=== PATIENT | female | born 2000 | race Caucasian/White ===

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

== ENCOUNTER 2020-03-09 20:07 | Emergency (ER) | payer MEDICAID ==
--- NOTE | 2020-03-09 20:50 | EDM.PDOC ---
ED HPI GENERAL MEDICAL PROBLEM - General Chief Complaint: Abdominal Pain Stated Complaint: LOWER RIGHT SIDE PAIN Time Seen by Provider: 03/09/20 20:49 Source of Information: Reports: Patient History Limitations: Reports: No Limitations - History of Present Illness INITIAL COMMENTS - FREE TEXT/NARRATIVE: onset today right flank area, did have dysuria last week, Right Abdominal Pain Score (Numeric/FACES): 7 - Related Data Allergies Allergy/AdvReac Type Severity Reaction Status Date / Time nitrofurantoin Allergy Rash Verified 12/21/19 23:45 Home Meds: Home Meds Ibuprofen 400 mg PO Q6H PRN 05/11/18 [History] Past Medical History - Past Health History Medical/Surgical History: Denies Medical/Surgical History HEENT History: Reports: None Cardiovascular History: Reports: None Respiratory History: Reports: None Gastrointestinal History: Reports: None Genitourinary History: Reports: None MAINTENANCE PERSON History: Reports: None Musculoskeletal History: Reports: None Neurological History: Reports: None Psychiatric History: Reports: None Endocrine/Metabolic History: Reports: None Hematologic History: Reports: None Immunologic History: Reports: None Oncologic (Cancer) History: Reports: None Dermatologic History: Reports: None - Infectious Disease History Infectious Disease History: Reports: None - Past Surgical History Head Surgeries/Procedures: Reports: None Social & Family History - Family History Family Medical History: Noncontributory - Caffeine Use Caffeine Use: Reports: None ED ROS GENERAL - Review of Systems Review Of Systems: Comprehensive ROS is negative, except as noted in HPI. ED EXAM, RENAL/ - Physical Exam Exam: See Below Exam Limited By: No Limitations General Appearance: Alert, WD/WN, Mild Distress, Other (discomfort). No: Active Emesis Ears: Hearing Grossly Normal Throat/Mouth: Normal Voice, No Airway Compromise Head: Atraumatic Neck: Non-Tender, Full Range of Motion Respiratory/Chest: No Respiratory Distress Cardiovascular: Regular Rate, Rhythm GI/Abdominal: Guarding, Tender, Other (RUQ). No: Distended, Rigid, Rebound Back Exam: CVA Tenderness (R) Neurological: Alert, Oriented, Normal Cognition, Normal Gait, No Motor/Sensory Deficits Psychiatric: Normal Affect, Normal Mood Skin Exam: Warm, Dry, Normal Color Lymphatic: No Adenopathy Course - Vital Signs Last Recorded V/S: Last Vital Signs Temp 37.4 C 03/09/20 20:47 Pulse 89 03/09/20 20:47 Resp 16 03/09/20 20:47 BP 113/69 03/09/20 20:47 Pulse Ox 100 03/09/20 20:47 - Orders/Labs/Meds Orders: Active Orders 24 hr Category Date Time Status CULTURE URINE [RM] Stat Lab 03/09/20 20:44 Received Labs: Laboratory Tests 03/09/20 03/09/20 03/09/20 Range/Units 20:44 20:44 21:00 WBC 8.9 (5.0-10.0) 10^3/uL RBC 3.94 L (4.2-5.4) 10^6/uL Hgb 12.1 (12.0-16.0) g/dL Hct 35.7 L (37.0-47.0) % MCV 90.6 (80-100) fL MCH 30.7 (27.0-34.0) pg MCHC 33.9 (33.0-35.0) g/dL Plt Count 216 D (150-450) 10^3/uL Neut % (Auto) 46.3 (42.2-75.2) % Lymph % (Auto) 42.3 (20.5-50.1) % [place] % (Auto) 8.7 H (2-8) % Eos % (Auto) 2.5 (1.0-3.0) % Baso % (Auto) 0.2 (0.0-1.0) % Sodium (136-145) mmol/L Potassium (3.5-5.1) mmol/L Chloride (98-107) mmol/L Carbon Dioxide (21-32) mmol/L Anion Gap (7-13) mEq/L BUN (7-18) mg/dL Creatinine (0.55-1.02) mg/dL Est Cr Clr Drug Dosing mL/min Estimated GFR (MDRD) BUN/Creatinine Ratio (No establ ref range) Glucose (74-99) mg/dL Calcium (8.5-10.1) mg/dL Total Bilirubin (0.2-1.0) mg/dL AST (15-37) U/L ALT (14-59) U/L Alkaline Phosphatase (46-116) U/L Total Protein (6.4-8.2) g/dL Albumin (3.4-5.0) g/dL Globulin Albumin/Globulin Ratio Amylase (25-115) U/L Lipase (73-393) U/L Urine Color Light yellow (YELLOW) Urine Appearance Slightly cloudy (CLEAR) Urine pH 6.5 (5.0-9.0) Ur Specific [place] 1.010 (1.005-1.030) Urine Protein Negative (NEGATIVE) Urine Glucose (UA) Negative (NEGATIVE) Urine Ketones Negative (NEGATIVE) Urine Occult Blood Trace-intact H (NEGATIVE) Urine Nitrite Negative (NEGATIVE) Urine Bilirubin Negative (NEGATIVE) Urine Urobilinogen 0.2 (0.2-1.0) mg/dL Ur Leukocyte Esterase Moderate H (NEGATIVE) Urine RBC 0-5 /HPF Urine WBC 30-40 H (0-5/HPF) /HPF Ur Epithelial Cells Moderate H (NOT SEEN) /HPF Amorphous Sediment Few (NOT SEEN) /HPF Urine Bacteria Few (0-FEW/HPF) /HPF Urine Mucus Rare (NOT SEEN) /LPF Urine HCG, Qual Negative 03/09/20 Range/Units 21:00 WBC (5.0-10.0) 10^3/uL RBC (4.2-5.4) 10^6/uL Hgb (12.0-16.0) g/dL Hct (37.0-47.0) % MCV (80-100) fL MCH (27.0-34.0) pg MCHC (33.0-35.0) g/dL Plt Count (150-450) 10^3/uL Neut % (Auto) (42.2-75.2) % Lymph % (Auto) (20.5-50.1) % [place] % (Auto) (2-8) % Eos % (Auto) (1.0-3.0) % Baso % (Auto) (0.0-1.0) % Sodium 141 (136-145) mmol/L Potassium 3.1 L (3.5-5.1) mmol/L Chloride 105 (98-107) mmol/L Carbon Dioxide 28 (21-32) mmol/L Anion Gap 11.1 (7-13) mEq/L BUN 10 (7-18) mg/dL Creatinine 0.93 (0.55-1.02) mg/dL Est Cr Clr Drug Dosing 90.33 mL/min Estimated GFR (MDRD) > 60 BUN/Creatinine Ratio 10.8 (No establ ref range) Glucose 107 H (74-99) mg/dL Calcium 8.5 (8.5-10.1) mg/dL Total Bilirubin 0.3 (0.2-1.0) mg/dL AST 12 L (15-37) U/L ALT 17 (14-59) U/L Alkaline Phosphatase 50 (46-116) U/L Total Protein 7.1 (6.4-8.2) g/dL Albumin 3.7 (3.4-5.0) g/dL Globulin 3.4 Albumin/Globulin Ratio 1.1 Amylase 44 (25-115) U/L Lipase 114 (73-393) U/L Urine Color (YELLOW) Urine Appearance (CLEAR) Urine pH (5.0-9.0) Ur Specific [place] (1.005-1.030) Urine Protein (NEGATIVE) Urine Glucose (UA) (NEGATIVE) Urine Ketones (NEGATIVE) Urine Occult Blood (NEGATIVE) Urine Nitrite (NEGATIVE) Urine Bilirubin (NEGATIVE) Urine Urobilinogen (0.2-1.0) mg/dL Ur Leukocyte Esterase (NEGATIVE) Urine RBC /HPF Urine WBC (0-5/HPF) /HPF Ur Epithelial Cells (NOT SEEN) /HPF Amorphous Sediment (NOT SEEN) /HPF Urine Bacteria (0-FEW/HPF) /HPF Urine Mucus (NOT SEEN) /LPF Urine HCG, Qual Meds: Medications Discontinued Medications Generic Name Dose Route Start Last Admin Trade Name Freq PRN Reason Stop Dose Admin Ciprofloxacin 500 mg 03/09/20 21:57 Ciprofloxacin Hcl PO 03/09/20 21:58 ONETIME ONE Phenazopyridine HCl 95 mg 03/09/20 21:57 Urinary Pain Relief PO 03/09/20 21:58 ONETIME ONE - Re-Assessments/Exams Free Text/Narrative Re-Assessment/Exam: 03/09/20 22:00 results discussed with pt Departure - Departure Time of Disposition: 22:00 Disposition: Home, Self-Care 01 Condition: Good Clinical Impression: UTI (urinary tract infection) Qualifiers: Urinary tract infection type: acute cystitis Hematuria presence: with hematuria Qualified Code(s): N30.01 - Acute cystitis with hematuria - Discharge Information Instructions: Urinary Tract Infection, Adult, [id number] Forms: ED Department Discharge Additional Instructions: 1) drink lots of liquids 2) follow up at clinic rx given; cipro 250mg bid x 5 days pyridium 100mg tid prn x 12 Sepsis Event Note (ED) - Evaluation Sepsis Screening Result: No Definite Risk - Focused Exam Vital Signs: Vital Signs Temp Pulse Resp BP Pulse Ox 03/09/20 20:47 37.4 C 89 16 113/69 100 - My Orders Last 24 Hours: My Active Orders 03/09/20 20:44 CULTURE URINE [RM] Stat - Assessment/Plan Last 24 Hours: My Active Orders 03/09/20 20:44 CULTURE URINE [RM] Stat
[2020-03-09 21:30] LABS: ANION GAP 11.1 mEq/L (7-13); CHLORIDE,CL 105 mmol/L (98-107); SODIUM,NA 141 mmol/L (136-145)
[2020-03-09] MEDS ORDERED: Ciprofloxacin 500 MG Tab PO ONE (21:57)
[2020-03-09] MEDS ORDERED: Phenazopyridine 95 MG Tab PO ONE (21:57)
== END 2020-03-09 22:07 | disposition home or self-care (01) ==
LOC: DL.ED 20:07
DX: N30.01 Acute cystitis with hematuria (principal); Z88.1 Allergy status to other antibiotic agents
CPT/HCPCS: 36415; 80053; 81001; 81025; 82150; 83690; 85025; 87086; 99283; A9270

== ENCOUNTER 2021-03-03 16:36 | Emergency (ER) | payer MEDICAID ==
--- NOTE | 2021-03-03 18:24 | EDM.PDOC ---
<Rachel Fermin - Last Filed: 03/03/21 19:20> ED HPI GENERAL MEDICAL PROBLEM - General Chief Complaint: ENT Problem Stated Complaint: THINKS HAS STREP Time Seen by Provider: 03/03/21 18:22 - Related Data Allergies Allergy/AdvReac Type Severity Reaction Status Date / Time nitrofurantoin Allergy Rash Verified 03/03/21 17:11 Departure - Departure Disposition: Home, Self-Care 01 Condition: Good Clinical Impression: Pharyngitis - Discharge Information *PRESCRIPTION DRUG MONITORING PROGRAM REVIEWED*: No *COPY OF PRESCRIPTION DRUG MONITORING REPORT IN PATIENT ZEYNEP: No Instructions: Sore Throat, [id number] Forms: ED Department Discharge Additional Instructions: alternate tylenol 650mg and ibuprofen 600mg every 4 hours as needed for discomfort/ fever clinic follow up 3-4 days if not improving or symptoms worsen increase fluids diet as tolerated <Stephanie Hough - Last Filed: 03/04/21 08:44> ED HPI GENERAL MEDICAL PROBLEM - General Source of Information: Reports: Patient, RN, RN Notes Reviewed History Limitations: Reports: No Limitations - History of Present Illness INITIAL COMMENTS - FREE TEXT/NARRATIVE: Nicole is a 21 y/o female who presents to the ED via personal vehicle with complaints of sore throat, neck pain, and headache. The patient states her symptoms started two days ago and have progressively worsened. She reports monthly migraines with her menses and feels her current headache feels similar. She has taken one dose of Tylenol 650mg with no alleviation in symptoms. She denies fever, shaking chills, vision changes, dizziness, cough, chest pain, or shortness of breath. She does attest to nasal congestion. Treatments CLAIM PROCESSOR: Reports: Acetaminophen .frontal h/a Pain Score (Numeric/FACES): 7 Past Medical History - Past Health History Medical/Surgical History: Denies Medical/Surgical History HEENT History: Reports: None Cardiovascular History: Reports: None Respiratory History: Reports: Asthma Gastrointestinal History: Reports: None Genitourinary History: Reports: None OFFLINE CUTTER History: Reports: None Musculoskeletal History: Reports: None Neurological History: Reports: None Psychiatric History: Reports: None Endocrine/Metabolic History: Reports: None Hematologic History: Reports: None Immunologic History: Reports: None Oncologic (Cancer) History: Reports: None Dermatologic History: Reports: None - Infectious Disease History Infectious Disease History: Reports: None - Past Surgical History Head Surgeries/Procedures: Reports: None HEENT Surgical History: Reports: Other (See Below) Other HEENT Surgeries/Procedures: wisdom teeth Social & Family History - Family History Family Medical History: No Pertinent Family History - Tobacco Use Tobacco Use Status *Q: Never Tobacco User Second Hand Smoke Exposure: No - Caffeine Use Caffeine Use: Reports: None - Recreational Drug Use Recreational Drug Use: No ED ROS ENT - Review of Systems Review Of Systems: Comprehensive ROS is negative, except as noted in HPI. ED EXAM, ENT - Physical Exam Exam: See Below Exam Limited By: No Limitations General Appearance: Alert, No Apparent Distress, Thin Eye Exam: Bilateral Eye: EOMI, Normal Inspection, PERRL (3mm) Ears: Normal External Exam, Normal Canal, Hearing Grossly Normal, Normal TMs Nose: Normal Inspection, Normal Mucousa, No Blood Mouth/Throat: Normal Inspection, Normal Gums, Normal Lips, Normal Oropharynx, Normal Teeth Head: Atraumatic, Normocephalic Neck: Supple, Full Range of Motion, Lymphadenopathy (L) (Anterior cervical chain), Lymphadenopathy (R) (Posterior cervical chain), Tender Midline. No: Tender Lateral Respiratory/Chest: No Respiratory Distress, Lungs Clear, Normal Breath Sounds, No Accessory Muscle Use, Chest Non-Tender. No: Crackles, Rales, Rhonchi, Wheezing, Stridor Cardiovascular: Normal Peripheral Pulses, Regular Rate, Rhythm, No Edema, No Gallop, No JVD, No Murmur, No Rub GI/Abdominal: Normal Bowel Sounds, Soft, Non-Tender, No Distention, No Abnormal Bruit, No Mass, Pelvis Stable (Female) Exam: Deferred Rectal (Female) Exam: Deferred Back: Normal Inspection, Full Range of Motion Extremities: Normal Inspection, Normal Range of Motion Neurological: Alert, Oriented, CN II-XII Intact, Normal Cognition, Normal Gait, No Motor/Sensory Deficits Psychiatric: Normal Affect, Normal Mood Skin: Warm, Dry, Intact, Normal Color, No Rash. No: Cyanosis, Jaundice, Mottled, Pallor Lymphatic: No Adenopathy Course - Vital Signs Last Recorded V/S: Last Vital Signs Temp 98.2 F 03/03/21 17:07 Pulse 88 03/03/21 17:07 Resp 16 03/03/21 17:07 BP 117/54 L 03/03/21 17:07 Pulse Ox 98 03/03/21 17:07 - Orders/Labs/Meds Meds: Medications Discontinued Medications Generic Name Dose Route Start Last Admin Trade Name Estella PRN Reason Stop Dose Admin Diphenhydramine HCl 50 mg 03/03/21 19:08 03/03/21 19:20 Diphenhydramine 50 Mg Cap PO 03/03/21 19:09 50 mg ONETIME ONE Administration Ketorolac Tromethamine 30 mg 03/03/21 19:08 03/03/21 19:19 Ketorolac 30 Mg/Ml Sdv IM 03/03/21 19:09 30 mg ONETIME ONE Administration - Re-Assessments/Exams Free Text/Narrative Re-Assessment/Exam: 03/03/21 Will treat migraine with Benadryl 50mg PO and Toradol 30mg IM. Patient to call for a ride. Care of patient transferred to Rachel Fermin PA-C at 1900. Departure - Departure Time of Disposition: 19:44 Sepsis Event Note (ED) - Evaluation Sepsis Screening Result: No Definite Risk
[2021-03-03] MEDS ORDERED: Ketorolac 30 MG/ML SDV IM ONE (19:08)
[2021-03-03] MEDS ORDERED: diphenhydrAMINE 50 MG Cap PO ONE (19:08)
== END 2021-03-03 19:44 | disposition home or self-care (01) ==
LOC: DL.ED 16:36
DX: J02.9 Acute pharyngitis, unspecified (principal); Z88.1 Allergy status to other antibiotic agents
CPT/HCPCS: 87081; 87430; 96372; 99283; J1885; Q0163

== ENCOUNTER 2022-06-29 22:31 | Emergency (ER) | payer MEDICAID ==
[2022-06-29] MEDS ORDERED: Albuterol/Ipratropium 3.0-0.5 MG/3 ML Neb Soln NEB ONE (23:21)
[2022-06-30 00:15] LABS: CORONAVIRUS COVID-19 NAA NEGATIVE (NEGATIVE)
[2022-06-30] MEDS ORDERED: predniSONE 20 MG Tab PO ONE (01:04)
== END 2022-06-30 01:26 | disposition home or self-care (01) ==
LOC: DL.ED 22:31
DX: J45.901 Unspecified asthma with (acute) exacerbation (principal); Z88.1 Allergy status to other antibiotic agents; Z20.822 Contact with and (suspected) exposure to COVID-19
CPT/HCPCS: 0240U; 71046; 94640; 99285; J7512; J7620-GY